=== PATIENT | female | born 1975 | race Two or more races ===

== ENCOUNTER 2024-06-20 14:54 | Outpatient (CLI) | payer OTHER ==
[2024-06-20 16:04] LABS: HEMATOCRIT 39.9 % (36.0-45.00); HEMOGLOBIN 13.3 g/dL (12.0-15.00); MEAN CELL VOLUME 81.1 fL (80.00-100.00); MEAN CORPUSCULAR HGB CONC 33.3 g/dl (32.0-36.0); PLATELET COUNT 333 K/uL (150-450); RED BLOOD COUNT 4.92 M/uL (4.00-6.00); RED CELL DISTRIBUTION WIDTH 14.4 % (11.5-14.5)
[2024-06-20 16:17] LABS: PH,URINE 7.5 (5.0-8.0); URINE APPEARANCE Clear; URINE BILIRRUBIN Negative (NEGATIVE); URINE BLOOD Negative; URINE COLOR Yellow; URINE GLUCOSE Negative (NEGATIVE); URINE KETONE Negative (NEGATIVE); URINE LEUKOCYTE Trace; URINE NITRATE Positive; URINE PROTEIN Negative (NEGATIVE); URINE UROBILINOGEN 0.2 E.U./dl
[2024-06-20 16:21] LABS: URINE EPITHELIAL CELLS 12.9 uL (0.0-38.8)
[2024-06-20 16:59] LABS: URINE BACTERIA > 9821.5 uL (0.0-1933); URINE CAST 0.14 uL (0.0-1.40); URINE RBC 1.7 uL (0.0-20.8)
[2024-06-20 17:31] LABS: FERRITIN 13.8 NG/ML (8-252); TSH 1.54 uIU/mL (0.358-3.74)
== END 2024-06-20 15:01 | disposition home or self-care (01) ==
LOC: LAB 14:54
DX: N39.0 Urinary tract infection, site not specified (principal); E78.2 Mixed hyperlipidemia; Z00.00 Encounter for general adult medical examination without abnormal findings; M62.830 Muscle spasm of back

== ENCOUNTER 2025-07-06 09:43 | Emergency (ER) | payer OTHER ==
[~2025-07-06] VITALS: Ht 154.9 cm; Wt 51.7 kg
[2025-07-06 09:59] VITALS: BP 134/84; O2SAT 99
[2025-07-06] MEDS ORDERED: ZOLOFT20 MG/1 ML PO (09:59)
[2025-07-06] MEDS ORDERED: METOCLOPRAMIDE HCL 5 MG/ML VIAL IV ONE (10:30)
[2025-07-06] MEDS ORDERED: 0.9 % SODIUM CHLORIDE 500 ML IV ONE (10:30)
[2025-07-06] MEDS ORDERED: METOCLOPRAMIDE HCL 5 MG/ML VIAL ONE (11:04)
== END 2025-07-06 15:03 | disposition home or self-care (01) ==
LOC: ER 09:43
DX: R42 Dizziness and giddiness (principal); F41.8 Other specified anxiety disorders; Z91.013 Allergy to seafood